=== PATIENT | female | born 1995 | race Caucasian/White ===

== ENCOUNTER 2017-10-15 21:12 | Emergency (ER) | payer MEDICAID, OTHER ==
[~2017-10-15] VITALS: Ht 149.9 cm; Wt 91.0 kg
[2017-10-15 21:37] VITALS: BP 128/61
== END 2017-10-15 22:09 | disposition left against medical advice (07) ==
LOC: ER 21:12
DX: M79.662 Pain in left lower leg (principal); Z53.21 Procedure and treatment not carried out due to patient leaving prior to being seen by health care provider

== ENCOUNTER 2017-12-22 13:36 | Emergency (ER) | payer MEDICAID ==
[~2017-12-22] VITALS: Ht 149.9 cm; Wt 91.0 kg
[2017-12-22 14:50] VITALS: BP 157/71
[2017-12-22] MEDS ORDERED: IPRATROPIUM BROMIDE (0.02%) 0.5MG/2.5ML NEB HHN STA (14:56)
[2017-12-22] MEDS ORDERED: PREDNISONE 20MG TABLET PO STA (14:56)
[2017-12-22] MEDS ORDERED: ALBUTEROL (0.083%) 2.5MG/3ML NEB HHN STA (14:56)
== END 2017-12-22 19:00 | disposition left against medical advice (07) ==
LOC: ER 17:04
DX: R05 Cough (principal); J34.89 Other specified disorders of nose and nasal sinuses; R09.81 Nasal congestion; R50.9 Fever, unspecified; J45.909 Unspecified asthma, uncomplicated
CPT/HCPCS: 99281